=== PATIENT | male | born 1980 | race African-American/Black ===

== ENCOUNTER 2016-11-06 16:08 | Inpatient (IN) | payer MEDICAID ==
[~2016-11-06] VITALS: Ht 188 cm; Wt 107.2 kg
[2016-11-06 16:10] VITALS: BP 175/88; PULSE 116; RESP 18; TEMP 98.1; O2SAT 99
--- NOTE | 2016-11-06 16:10 | NUR ---
Patient to ER bed 6 to gown for evaluation. Side rails up. Report given to Heather POLANCO.
--- NOTE | 2016-11-06 16:13 | NUR ---
ER MD Cruz at bedside for evaluation
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
--- NOTE | 2016-11-06 16:22 | NUR ---
CALLED [facility]ICER [facility] AND THEY WILL BE SENDING AN OFFICER EN ROUTE
[2016-11-06] MEDS ORDERED: DIPH-TET-PERTUS Vaccine 0.5 ML VIAL (ADACEL) I.M. ONE (16:30)
--- NOTE | 2016-11-06 16:41 | NUR ---
DENNY GUERRERO HERE TO SEE PT.
--- NOTE | 2016-11-06 17:12 | NUR ---
Report # [id number] by [employer] Chris.
[2016-11-06 17:14] LABS: BASOPHILS # (AUTO) 0.1 K/uL (0.0-0.2); BASOPHILS % (AUTO) 0.7 % (0.0-2.0); EOSINOPHILS # (AUTO) 0.1 K/uL (0.0-0.4); EOSINOPHILS % (AUTO) 0.9 % (0.0-4.0); HEMATOCRIT 39.8 % (36-54); HEMOGLOBIN 13.5 g/dL (14.0-18.0); LYMPHOCYTES # (AUTO) 2.5 K/uL (1.0-5.5); LYMPHOCYTES % (AUTO) 29.6 % (20.5-51.5); MEAN CORPUSCULAR HEMOGLOBIN 33 pg (27-31); MEAN CORPUSCULAR HGB CONC 34 % (32-36); MEAN CORPUSCULAR VOLUME 96 fL (79.0-98.0); MONOCYTES # (AUTO) 0.8 K/uL (0.0-1.0); NEUTROPHILS # (AUTO) 4.8 K/uL (1.8-7.7); NEUTROPHILS % (AUTO) 58.8 % (40.0-70.0); PLATELET COUNT (AUTO) 329 K/uL (130-430); RED BLOOD CELL COUNT(AUTO) 4.15 MIL/uL (4.2-6.2); RED CELL DISTRIBUTION WIDTH 11.9 % (9.0-15.0); WHITE BLOOD COUNT (AUTO) 8.3 K/uL (4.8-10.8)
[2016-11-06] MEDS ORDERED: CEFAZOLIN 1 GM IVPB PREMIX 50 ML IV ONE (17:15)
[2016-11-06 17:22] LABS: CALCIUM 9.5 mg/dL (8.4-11.0); CREATININE 1.18 mg/dL (0.55-1.30); POTASSIUM 4.3 mmol/L (3.5-5.1)
[2016-11-06 17:26] LABS: INR 1.1 (0.80-1.20); PROTHROMBIN TIME 11.8 SECS (9.5-12.5)
[2016-11-06 17:27] LABS: ALBUMIN 4.1 g/dL (3.4-4.8); TOTAL BILIRUBIN 0.4 mg/dL (0.0-1.0); TOTAL PROTEIN, SERUM 8.2 g/dL (6.4-8.3)
--- NOTE | 2016-11-06 17:50 | NUR ---
ER MD Cruz at bedside stapling the open wound
--- NOTE | 2016-11-06 18:27 | NUR ---
Patient will be admitted to care of DR LOZADA. Admitted to [facility] unit. Will go to room 124A. Belongings list completed. Summary report printed. Report given to COLLIN.
--- NOTE | 2016-11-06 18:40 | NUR ---
Transfer to [facility]. IV present no sign or symptom of infiltration.
[2016-11-06] MEDS ORDERED: ONDANSETRON HCL 4 MG/2 ML VIAL IVP PRN (18:45)
[2016-11-06] MEDS ORDERED: MORPHINE 2 MG/ML INJ. SYRINGE IVP PRN (18:45)
--- NOTE | 2016-11-06 19:11 | NUR ---
ADMISSION: The patient, KAN SUNSHINE, 36 y/o, M admitted by JANA LOZADA MD, was given written information regarding hospital policies, unit procedures and contact persons.
[2016-11-06 19:30] VITALS: BP 132/84; PULSE 66; RESP 18; TEMP 98.2
[2016-11-06] MEDS ORDERED: ACETAMINOPHEN 500 MG TABLET PO PRN (19:30)
--- NOTE | 2016-11-06 19:30 | NUR ---
ROUNDS PATIENT IN BED, VITALS STABLE, DENIES ANY PAIN AND DISCOMFORT AT THIS TIME. ADMISSION ASSESSMENT AND DATA DONE AND DOCUMENTED. PLAN OF CARE DISCUSSED AND PATIENT VERBALIZED UNDERSTANDING. ORIENTED PATIENT TO HIS ROOM ,PHONE AND CALL LIGHT . SAFETY MEASURES IN PLACED. CALL LIGHT PLACED WITH PATIENT.
--- NOTE | 2016-11-06 22:00 | NUR ---
PATIENT RESTING: Patient resting quietly. No acute distress noted. Vital signs within normal range.
--- NOTE | 2016-11-07 | NUR ---
PATIENT RESTING: Patient resting quietly. No acute distress noted. Vital signs within normal range.
[2016-11-07 00:57] VITALS: BP 133/71; PULSE 67; RESP 16; TEMP 99.2; O2SAT 98
--- NOTE | 2016-11-07 01:52 | NUR ---
CONSULT: DR. SYD Blankenship was at the unit & saw patient.
[2016-11-07 03:37] VITALS: BP 128/70; PULSE 69; RESP 16; TEMP 98.8; O2SAT 95
--- NOTE | 2016-11-07 04:00 | NUR ---
PATIENT RESTING: Patient resting quietly. No acute distress noted. Vital signs within normal range.
--- NOTE | 2016-11-07 06:50 | NUR ---
CLOSING NOTES PATIENT AWAKE, VITALS STABLE, ALL NEEDS ATTENDED TO. SAFETY MEASURES MAINTAINED. CALL LIGHT PLACED WITH PATIENT.
[2016-11-07 07:06] LABS: BASOPHILS # (AUTO) 0.1 K/uL (0.0-0.2); BASOPHILS % (AUTO) 0.6 % (0.0-2.0); EOSINOPHILS # (AUTO) 0.1 K/uL (0.0-0.4); EOSINOPHILS % (AUTO) 1.3 % (0.0-4.0); HEMATOCRIT 37.5 % (36-54); HEMOGLOBIN 12.7 g/dL (14.0-18.0); LYMPHOCYTES % (AUTO) 28.3 % (20.5-51.5); MEAN CORPUSCULAR HEMOGLOBIN 33 pg (27-31); MEAN CORPUSCULAR HGB CONC 34 % (32-36); MEAN CORPUSCULAR VOLUME 96 fL (79.0-98.0); MONOCYTES # (AUTO) 1.5 K/uL (0.0-1.0); MONOCYTES % (AUTO) 13.7 % (1.7-9.3); NEUTROPHILS % (AUTO) 56.1 % (40.0-70.0); PLATELET COUNT (AUTO) 283 K/uL (130-430); RED BLOOD CELL COUNT(AUTO) 3.89 MIL/uL (4.2-6.2); RED CELL DISTRIBUTION WIDTH 11.9 % (9.0-15.0); WHITE BLOOD COUNT (AUTO) 10.7 K/uL (4.8-10.8)
[2016-11-07 08:00] VITALS: BP 126/77; PULSE 99; RESP 17; TEMP 97.7; O2SAT 98
--- NOTE | 2016-11-07 08:00 | NUR ---
OPENING NOTE: RECEIVED REPORT FROM NIGHT NURSE. PATIENT IS RESTING COMFORTABLY IN BED. NO S/S OF DISTRESS OR SOB. PATIENT IS ALERT AND ORIENTED, ABLE TO EXPRESS NEEDS, AND ASK FOR ASSISTANCE. VITAL SIGNS WNL, ASSESSMENT COMPLETE. CALL LIGHT IN REACH, BED IN LOWEST POSITION, AND WILL CONTINUE TO MONITOR.
--- NOTE | 2016-11-07 10:10 | NUR ---
NOTE: PATIENT TAKEN FOR CT SCAN. NO S/S OF DISTRESS OR SOB. PATIENT IS ALERT AND ORIENTED, ABLE TO EXPRESS NEEDS, AND ASK FOR ASSISTANCE. WILL MONITOR WHEN RETURNS.
--- NOTE | 2016-11-07 12:00 | NUR ---
NOTE: PATIENT IS RESTING COMFORTABLY IN BED. NO S/S OF DISTRESS OR SOB. PATIENT IS ALERT AND ORIENTED, ABLE TO EXPRESS NEEDS, AND ASK FOR ASSISTANCE. CALL LIGHT IN REACH, BED IN LOWEST POSITION, AND WILL CONTINUE TO MONITOR.
[2016-11-07 12:10] VITALS: BP 122/69; PULSE 80; RESP 16; TEMP 96.5; O2SAT 95
[2016-11-07 14:31] VITALS: BP 122/69; PULSE 80; RESP 16; TEMP 96.5; O2SAT 95
[2016-11-07] MEDS ORDERED: SULF1TAB48 PO (14:35)
[2016-11-07] MEDS ORDERED: IBUP-1480 PO (14:36)
--- NOTE | 2016-11-07 15:00 | NUR ---
D/C Patient Patient given medication reconciliation form and D/C instructions. Exit Care provided. Patient verbalized understanding. MD discussed with patient the results and treatment provided. Ambulatory with steady gait for discharge to home. Patient in stable condition, ID band removed. IV catheter removed, intact and dressing applied, no active bleeding. Rx of Motrin and Bactrim given. Patient educated on pain management. All belongings sent with patient.
== END 2016-11-07 15:00 | disposition home or self-care (01) | DRG 951 ==
LOC: SED 16:08 → SMU 18:27
PROVIDERS: ADMIT Family Medicine; ATTEND Family Medicine
PROC: 0XQ5XZZ Repair Left Axilla, External Approach (ICD-10-PCS; principal; 2016-11-06)
DX: S21.112A Laceration without foreign body of left front wall of thorax without penetration into thoracic cavity, initial encounter (principal); Z83.3 Family history of diabetes mellitus
CPT/HCPCS: 36415; 71010; 71250-TC; 80053; 85025; 85610-TC; 85730-TC; 86886; 86900; 86901; 90715; 96365; 99291; G0482; J0690; J2270